=== PATIENT | male | born 1965 | race African-American/Black ===

== ENCOUNTER 2024-05-01 06:52 | Emergency (ER) | payer OTHER, SELFPAY ==
[2024-05-01 07:03] VITALS: BP 133/77
--- NOTE | 2024-05-01 07:28 | ED.GENMED ---
History of Present Illness
<Mercedes Kumari MD, Resident - Last Filed: 05/01/24 09:22>
General
Chief Complaint: Flank Pain
Source: patient
Time Seen by Provider: 05/01/24 07:16
History of Present Illness
History of Present Illness:
This is a 59-year-old male patient with no significant past medical history who presents to the ED with right-sided flank pain. He states that he had right-sided flank pain that started yesterday morning which was intermittent, nonradiating and
rated the pain 8/10. This was not associated with any nausea, vomiting, fever or chills. He denies any prior episodes of similar complaints before. He is not on any current daily medications besides 'fiber pills' he takes for weight loss.
Past History
<Mercedes Kumari MD, Resident - Last Filed: 05/01/24 09:22>
Past History
ED Past Medical History: None
ED Past Surgical History: None
Social History
Tobacco: Non-smoker
Alcohol: None
Drug: None
Review of Systems
<Mercedes Kumari MD, Resident - Last Filed: 05/01/24 09:22>
Review of Systems
Constitutional: Denies fever or chills
Cardiac: Denies chest pain or palpitations
ABD/GI: Denies abdominal pain, nausea or vomiting
: Reports flank pain (right)
Phy Exam
<Mercedes Kumari MD, Resident - Last Filed: 05/01/24 09:22>
General Physical Exam
General Presentation: well appearing and no apparent distress
Cardiovascular Exam
Cardiovascular Exam: regular rate/rhythm and no murmur
Heart Sounds: normal
Pulmonary Exam
Pulmonary Exam: lungs clear, no respiratory distress and no crackles
Gastrointestinal Exam
Gastrointestinal Exam: non tender, soft and non distended
Neurological Exam
Neurological Exam: oriented x3
Musculoskeletal Exam
Musculoskeletal Exam: no edema
Skin Exam
Skin Exam: warm/dry
Psychiatric Exam
Psychiatric Exam: normal mood/affect
Course
<Mercedes Anisha Kumari MD, Resident - Last Filed: 05/01/24 09:22>
Orders/Labs/Results
Orders:
Orders
05/01/24 07:25
Ketorolac [Toradol] 15 mg IV NOW STA
05/01/24 07:26
CT Abd/pel Without Iv Or Oral Urgent
Comment:
Reason For Exam: L flank pain
05/01/24 07:42
Basic Metabolic Panel Urgent
Complete Blood Count/With Diff Urgent
Urinalysis Reflex To Culture Urgent
Date Specimen was Collected: 05/01/24
Time Specimen was Collected: 07:41
Abnormal Lab Results
05/01/24
07:42
Absolute Monos (auto) 0.7 H 10^3/uL
(0.1-0.6)
Monocytes % 13.7 H %
(1.7-9.3)
Creatinine 0.5 L mg/dL
(0.7-1.3)
Glucose 299 H mg/dl
(70-99)
Urine Glucose 3+ A
(Negative)
05/01/24 07:42
05/01/24 07:42
Vital Signs
Initial and Last Documented VS:
Initial Vital Signs
Temp Pulse Resp BP Pulse Ox
37.4 C 74 16 133/77 98
05/01/24 07:03 05/01/24 07:03 05/01/24 07:03 05/01/24 07:03 05/01/24 07:03
Last Documented Vital Signs
Temp Pulse Resp BP Pulse Ox
37.4 C 74 16 141/87 94
05/01/24 07:03 05/01/24 07:03 05/01/24 07:03 05/01/24 08:00 05/01/24 08:00
<Joe Sandoval Alize, DO - Last Filed: 05/01/24 09:33>
Orders/Labs/Results
Orders:
Orders
05/01/24 07:25
Ketorolac [Toradol] 15 mg IV NOW STA
05/01/24 07:26
CT Abd/pel Without Iv Or Oral Urgent
Comment:
Reason For Exam: L flank pain
05/01/24 07:42
Basic Metabolic Panel Urgent
Complete Blood Count/With Diff Urgent
Urinalysis Reflex To Culture Urgent
Date Specimen was Collected: 05/01/24
Time Specimen was Collected: 07:41
Abnormal Lab Results
05/01/24
07:42
Absolute Monos (auto) 0.7 H 10^3/uL
(0.1-0.6)
Monocytes % 13.7 H %
(1.7-9.3)
Creatinine 0.5 L mg/dL
(0.7-1.3)
Glucose 299 H mg/dl
(70-99)
Urine Glucose 3+ A
(Negative)
05/01/24 07:42
05/01/24 07:42
Vital Signs
Initial and Last Documented VS:
Initial Vital Signs
Temp Pulse Resp BP Pulse Ox
37.4 C 74 16 133/77 98
05/01/24 07:03 05/01/24 07:03 05/01/24 07:03 05/01/24 07:03 05/01/24 07:03
Last Documented Vital Signs
Temp Pulse Resp BP Pulse Ox
37.4 C 74 16 141/87 94
05/01/24 07:03 05/01/24 07:03 05/01/24 07:03 05/01/24 08:00 05/01/24 08:00
<Mercedes Kumari MD, Resident - Last Filed: 05/01/24 09:22>
*Critical Care Note
Total Time (30-74mins, 75-104mins- exclusive of procedures): Not Applicable
<Mercedes Kumari MD, Resident - Last Filed: 05/01/24 09:22>
Update Note
Update Note:
CBC/CMP without significant findings except for blood glucose 299. CT abdomen showed umbilical hernia without inflammatory changes and mild bladder wall thickening. No acute processes present. Likely musculoskeletal pain. Patient will be
discharged home to be started on metformin for newly diagnosed diabetes mellitus and physical prescription provided for blood glucose meter/test strips.
ED Attending Note
<Mercedes Kumari MD, Resident - Last Filed: 05/01/24 09:22>
-
Portions of this chart may have been created with voice recognition software.� Occasional wrong word or��sound alike� substitutions may have occurred due to the inherent limitations of voice recognition software.
<Joe Herrmann DO - Last Filed: 05/01/24 09:33>
ED Attending Note
Patient seen and examined by attending physician: Yes
I performed a history and physical exam of patient and discussed management with resident, I reviewed resident's note and agree with documented findings and plan of care.: Yes
ED Attending Note:
I evaluated the patient at bedside. The patient reports pain in the right flank/right oblique musculature. He thinks he may have pulled a muscle. He has no urinary symptoms including no urinary hesitancy. His white blood cell count is normal.
CT imaging obtained and reviewed. Notified patient of the elevated blood sugar�blood sugar today is 299.
Discharge Plan
Departure
Patient Disposition: Home (Routine Discharge)
Date of Disposition: 05/01/24
Time of Disposition: 08:59
Patient with high blood pressure during this ER visit?: Yes
Discharge Problem:
Flank pain, Diabetes mellitus
Instructions: Type 2 diabetes
Prescriptions:
New
metformin 500 mg tablet
500 mg PO BID Qty: 30 0RF
Interventions
Interventions:
*Risk Screen - Suicide Last Done: 05/01/24 06:55
*Neglect/Abuse Screening Last Done: 05/01/24 06:57
ED- Fall Risk Assessment Last Done: 05/01/24 07:56
*Nursing Disposition Last Done: 05/01/24 09:14
[facility]-[place]-[facility] Assessment Last Done: 05/01/24 07:55
ED-Male Genitourinary Assessment Last Done: 05/01/24 07:55
Discharge Date and Time
Discharge Date/Time: 05/01/24 09:15
Print Language: [id number]
[2024-05-01] MEDS: TORADOL 15 MG IV (07:41)
[2024-05-01 07:54] VITALS: BP 137/96
[2024-05-01 07:54] LABS: Urine Albumin Negative (Neg - Trace); Urine Bilirubin Negative (Negative); Urine Character Clear (Clear); Urine Color Yellow; Urine Glucose 3+ (Negative); Urine Ketone Negative (Negative); Urine Leukocyte Negative (Negative); Urine Nitrite Negative (Negative); Urine Occult Blood Negative (Negative); Urine Specific Gravity 1.015 (<1.030); Urine Urobilinogen Negative (Neg - 1+)
[2024-05-01 07:56] LABS: % Basophils 0.6 % (0-2); % Eosinophils 2.3 % (0-6); % Immature Granulocytes 0.4 % (0-0.5); % Lymphocytes 29.9 % (20.5-51.1); % Monocytes 13.7 % (1.7-9.3); % Neutrophils 53.1 % (42.2-75.2); Absolute Eosinophils 0.1 10^3/uL (0-0.7); Absolute Lymphocytes 1.4 10^3/uL (1.2-3.4); Absolute Monocytes 0.7 10^3/uL (0.1-0.6); Absolute Neutrophils 2.5 10^3/uL (1.4-6.5); Hemoglobin 15.9 g/dL (13.0-18.0); Mean Corp Hgb Conc. 33.8 g/dL (33.0-37.0); Mean Corpuscular Hgb 29.1 pg (27.0-31.0); Mean Corpuscular Volume 86.1 fL (80.0-94.0); Mean Platelet Volume 10.3 fL (7.4-10.4); Nucleated Red Blood Cells % 0 % (-); Platelet Count 167 10^3/uL (130-400); Red Blood Cell Count 5.46 10^6/uL (4.70-6.10); White Blood Cell Count 4.8 10^3/uL (4.8-10.8)
[2024-05-01 08:00] VITALS: BP 141/87
[2024-05-01 08:06] LABS: Blood Urea Nitrogen 11 mg/dl (9-20); Calcium 8.8 mg/dl (8.4-10.2); Carbon Dioxide 26 mmol/L (22-30); Chloride 100 mmol/L (98-107); Glucose 299 mg/dl (70-99); Potassium 4.3 mmol/L (3.5-5.1); Sodium 136 mmol/L (135-145); eGFR > 60.00
== END 2024-05-01 09:15 | disposition home or self-care (01) ==
LOC: EMR 06:52
PROVIDERS: EMERGENCY PHYSICIAN Emergency Medicine
DX: R10.9 Unspecified abdominal pain (principal); E11.9 Type 2 diabetes mellitus without complications; K42.9 Umbilical hernia without obstruction or gangrene
CPT/HCPCS: 96374; 99284; 74176; 80048; 81003; 85025